=== PATIENT | male | born 2000 | race Caucasian/White ===

== ENCOUNTER 2018-08-30 16:48 | Emergency (ER) | payer SELFPAY ==
[~2018-08-30] VITALS: Wt 68.7 kg
--- NOTE | 2018-08-30 17:41 | ERD ---
ER Documentation Chief Complaint Chief Complaint mid-chest pain; 'throbbing' 5/10. onset this AM at rest. denies anxiety HPI 17-year-old male presents to the emergency department complaining of midsternal nonradiating constant chest pain described as throbbing 5 out of 10 since this morning. Patient states that he has never had chest pain before. Patient denies fevers, shortness of breath, nausea vomiting, drug use, alcohol use. Patient denies medical problems or heart conditions. Denies any family history of any heart conditions as well. Patient states he has not tried any medications for this. ROS All systems reviewed and are negative except as per history of present illness. Medications Home Meds Active Scripts Acetaminophen* (Tylenol*) 325 Mg Tablet, 2 TAB PO Q6 PRN for PAIN AND OR ELEVATED TEMP, #30 TAB Prov:JEFFREY BLUE PA-C 08/30/18 Reported Medications [None] No Conflict Check 08/01/10 Allergies Allergies: Coded Allergies: No Known Drug Allergies (Verified Allergy, Mild, 10/27/14) PMhx/Soc Medical and Surgical Hx: pt denies Medical Hx, pt denies Surgical Hx History of Surgery: No Anesthesia Reaction: No Hx Neurological Disorder: No Hx Respiratory Disorders: No Hx Cardiac Disorders: No Hx Psychiatric Problems: No Hx Miscellaneous Medical Probl: No Hx Alcohol Use: No Hx Substance Use: No Hx Tobacco Use: No Physical Exam Vitals Vital Signs Date Temp Pulse Resp B/P (MAP) Pulse Ox O2 O2 Flow FiO2 Time Delivery Rate 08/30/18 98.2 89 18 137/80 99 Room Air 18:50 (99) 08/30/18 98.1 89 18 136/77 98 16:50 (96) Physical Exam GENERAL: no acute distress, non-toxic appearing, sitting up in bed HENT: normocephalic/atraumatic EYES: conjunctiva is normal NECK: no noticeable or palpable swelling, no carotid bruits, no JVD CARDIOVASCULAR: RRR, good S1S2, no murmurs or gallops heard PULM: clear to auscultation, no use of accessory muscles, no crackles or wheezes. ABDOMEN: normal bowel sounds, abdomen soft and nontender EXT: no edema, cyanosis or clubbing MUSCULOSKELETAL: 5/5 strength, normal range of motion, no swollen or erythematous joints. NEURO: alert and oriented SKIN: no rashes, skin warm and dry, no erythematous areas BREAST: breast exam was not relevant, therefore not preformed PSYCH: normal mood and mentation, denies suicidal or homicidal ideation and thoughts Procedures/MDM Patient's thoracic symptoms have stabilized while in the department and are sta ble for outpatient follow up. Exam and work up not consistent w/ ischemia, arrhythmia, PE or dissection. EKG: read and signed off by myself and Teehee Rate/Rhythm: Normal Sinus Rhythm 83 bpm QRS, ST, T-waves: No changes consistent w/ acute ischemia Impression: No evidence of ischemia or arrhythmia Departure Diagnosis: Primary Impression: Chest pain Condition: Stable JEFFREY BLUE PA-C Aug 30, 2018 17:41
[2018-08-30] MEDS ORDERED: ACET325T33 PO (18:32)
[2018-08-30 18:50] VITALS: BP 137/80; PULSE 89; RESP 18
== END 2018-08-30 18:51 | disposition home or self-care (01) ==
LOC: FTE 16:48
DX: R07.9 Chest pain, unspecified (principal)
CPT/HCPCS: 71046; 93005

== ENCOUNTER 2019-04-04 17:49 | Emergency (ER) | payer MEDICAID ==
[~2019-04-04] VITALS: Ht 170.2 cm; Wt 67.1 kg
[~2019-04-04 17:49] MED LIST: ACET325T33 PO
[2019-04-04 17:58] VITALS: Ht 170.2 cm; Wt 67.1 kg
[2019-04-04] MEDS ORDERED: SOD CHLORIDE 0.9% 1,000 ML IV ONE (18:30)
[2019-04-04] MEDS ORDERED: ADENOSINE 3 MG/ML SYRINGE IV ONE (18:30)
[2019-04-04] MEDS ORDERED: DILTIAZEM 25 MG INJ IV ONE (18:30)
[2019-04-04] MEDS ORDERED: ADENOSINE 6 MG INJ IV ONE ×2 (18:30)
[2019-04-04 22:50] VITALS: BP 115/62; PULSE 79; RESP 17
== END 2019-04-05 00:06 | disposition short-term general hospital (02) ==
LOC: E/R 17:49
DX: I44.0 Atrioventricular block, first degree (principal); R40.2142 Coma scale, eyes open, spontaneous, at arrival to emergency department; R40.2362 Coma scale, best motor response, obeys commands, at arrival to emergency department; R40.2252 Coma scale, best verbal response, oriented, at arrival to emergency department; I47.1 Supraventricular tachycardia
CPT/HCPCS: 36415; 71045; 80048; 83735; 84484; 85025; 93005; 96374; 96375; J7030; Z7502; Z7610